=== PATIENT | male | born 1975 | race African-American/Black ===

== ENCOUNTER 2024-06-06 15:09 | Outpatient (CLI) | payer OTHER | END 2024-06-06 15:10 | disposition home or self-care (01) | LOC: BICRAD 15:09 | PROVIDERS: ATTEND Nurse Practitioner Family | DX: M54.31 Sciatica, right side (principal); M47.812 Spondylosis without myelopathy or radiculopathy, cervical region | CPT/HCPCS: 72040; 72072; 72100 ==

== ENCOUNTER 2024-07-18 09:22 | Emergency (ER) | payer OTHER ==
[2024-07-18 11:12] LABS: Bacteria/HPF None Seen HPF (None Seen); Bilirubin Negative (Negative); Blood, Urine Negative (Negative); CAUTI Indications for Culture Pelvic or flank pain; Clarity Clear (Clear); Glucose, Urine (Dipstick) Normal (Negative); Ketone, Urine Negative (Negative); Leukocyte Negative Leu/uL (Negative); Nitrite Negative (Negative); Protein, Urine (Dipstick) 10 mg/dL (Neg-Trace); RBC/HPF None Seen HPF (0-3); Specific Gravity, Urine 1.028 (1.002-1.036); Squamous Epithelial 0-3 HPF (0-3); Urobilinogen Normal mg/dL (Less than 2); WBC/HPF 0-3 HPF (0-3); pH, Urine 6.5 (5.0-9.0)
[2024-07-18 11:13] LABS: Urine Culture Reflex No No
[2024-07-18 11:18] LABS: #Basophils Less than 0.03 10x3/uL (0.0-0.2); #Eosinophils Less than 0.03 10x3/uL (0.0-0.7); %Basophils 0.3 % (0.0-1.0); %Eosinophils 0.3 % (0.0-10.0); %Monocytes 9.6 % (0.0-10.0); %Neutrophils 51.7 % (42.0-75.0); Hematocrit 40.6 % (42.0-52.0); Hemoglobin 13.3 g/dL (14.0-18.0); Mean Corpuscular HGB CONC 32.8 g/dL (32.0-36.0); Mean Corpuscular Hemoglobin 28.1 pg (27.0-31.0); Mean Corpuscular Volume 85.8 fL (78.0-98.0); Platelet Count 192 10x3/uL (130-400); RBC Distribution Width 13.1 % (11.5-14.5); Red Blood Cell (RBC) Count 4.73 mill/uL (4.70-6.10)
[2024-07-18] MEDS ORDERED: Acetaminophen 500 MG TAB ONE (11:24)
[2024-07-18] MEDS ORDERED: Dexamethasone 10 MG/ML VIAL ONE (11:24)
[2024-07-18] MEDS ORDERED: Ketorolac Tromethamine 30 MG (1 mL) VIAL ONE (11:34)
[2024-07-18] MEDS ORDERED: HYDROcodone/Acetaminophen 5/325 mg Tablet ONE (11:39)
[2024-07-18 11:47] LABS: ALT (SGPT) 26 U/L (Less than 45); AST (SGOT) 29 U/L (11-34); Albumin 3.9 g/dL (3.1-4.5); Alkaline Phosphatase 67 U/L (40-110); Anion Gap 11 mmol/L (10-20); BUN (Urea Nitrogen) 17 mg/dL (8.9-20.6); Bilirubin, Total 0.5 mg/dL (0.3-1.2); Calc. Creatinine Clearance 0 mL/min (70-130); Calcium 8.8 mg/dL (7.8-10.44); Carbon Dioxide 26 mmol/L (22-29); Chloride 106 mmol/L (98-107); Estimated GFR 84; Globulin 3.7 g/dL (2.4-3.5); Glucose 93 mg/dL (70-105); Lipase 21 U/L (8-78); Potassium 3.9 mmol/L (3.5-5.1); Protein, Total 7.6 g/dL (6.0-8.3); Sodium 139 mmol/L (136-145)
== END 2024-07-18 14:04 | disposition home or self-care (01) ==
LOC: ERS 09:22
DX: M54.42 Lumbago with sciatica, left side (principal)
CPT/HCPCS: 36415; 80053; 81001; 83690; 85025; 96372; 99284; J1100; J1885